=== PATIENT | male | born 1995 | race Two or more races ===

== ENCOUNTER 2022-11-24 19:00 | Inpatient (IN) | payer OTHER ==
[~2022-11-24] VITALS: Ht 175.3 cm; Wt 80.3 kg
== END 2022-11-26 11:41 | disposition home or self-care (01) | DRG 343 ==
LOC: ER 19:00 → SURH 11-25 00:18
PROVIDERS: ADMIT Internal Medicine; ATTEND Internal Medicine
PROC: BW21YZZ Computerized Tomography (CT Scan) of Abdomen and Pelvis using Other Contrast (ICD-10-PCS; 2022-11-25)
PROC: BW40ZZZ Ultrasonography of Abdomen (ICD-10-PCS; 2022-11-25)
PROC: 0DTJ4ZZ Resection of Appendix, Percutaneous Endoscopic Approach (ICD-10-PCS; principal; 2022-11-26)
DX: K35.80 Unspecified acute appendicitis (principal)